=== PATIENT | female | born 1935 | race Caucasian/White ===

== ENCOUNTER 2016-12-05 09:15 | Emergency (ER) | payer MEDICARE, OTHER, MEDICAID ==
--- NOTE | ~2016-12-05 | ER ---
PATIENT'S NAME: YURIDIA ESCAMILLA [facility] AGE: 81 Y [address] ROOM: [place] [address] LOCATION: ED ADMIT DATE: 12/05/2016 ER/Outpatient Report DISCHARGE DATE: 12/05/2016 FAMILY PHYSICIAN: Tyree Beltrán MD ATTENDING PHYSICIAN: Kb Magaña CHIEF COMPLAINT: Dizziness. HISTORY OF PRESENT ILLNESS: The patient was at home and in her usual state of health this morning. She had gone to the restroom and had breakfast with no issues; however, when she sat down, she had acute onset of dizziness which she describes as kind of a spinning-type sensation. She usually sleeps in her recliner and felt like she was doing okay and slept well last night. This just came out of no where and had no symptoms prior to starting. She feels much better upon arrival, but not completely resolved. The patient did have some nausea and vomiting with this, but has otherwise felt okay. No other abdominal complaints. She denies any other acute issues. She states she has never had anything like this before. She has a history of "a small heart," but is unsure what that means exactly. She thinks she does not know her doll wig maker's name, but states they practice at the [facility] [place] [facility]. No medications have been tried for this. She did arrive by ambulance. PAST MEDICAL HISTORY: Documented on the record and reviewed by me. SOCIAL HISTORY: Documented on the record and reviewed by me. MEDICATIONS: Documented on the record and reviewed by me. ALLERGIES: DOCUMENTED ON THE RECORD AND REVIEWED BY ME. REVIEW OF SYSTEMS: All systems were reviewed and negative except as noted in the HPI. PHYSICAL EXAMINATION: VITAL SIGNS: Blood pressure 192/85, pulse 69, respiratory rate 16, temperature 96.2, and SpO2 is 98% on room air. GENERAL: Age-appropriate female, in no obvious pain or distress, resting comfortably on the exam table. PATIENT'S NAME: YURIDIA ESCAMILLA [facility] AGE: 81 Y [address] ROOM: [place] [address] LOCATION: ED ADMIT DATE: 12/05/2016 ER/Outpatient Report DISCHARGE DATE: 12/05/2016 FAMILY PHYSICIAN: Tyree Beltrán MD ATTENDING PHYSICIAN: Kb Magaña NEURO: The patient is awake and alert. GCS is 15. No focal deficits. No asymmetry. No appreciable nystagmus on exam. She has no skew on exam either. She has no problems with rapid alternating movements, no asymmetry otherwise. HEENT: Normocephalic, atraumatic. The eyes are PERRL. Oropharynx is clear. NECK: Supple. Trachea is midline. CHEST/HEART: Regular rate and rhythm. No murmurs. LUNGS: Clear to auscultation bilateral with no rhonchi, wheezes, or rales. ABDOMEN: Soft, nontender, and nondistended. No rebound or guarding. BACK: Nontender to palpation throughout. No CVA tenderness. EXTREMITIES: Warm and well perfused with no edema. SKIN: Warm, dry, and intact with no obvious lesions. LABS, X-RAYS, AND EKGS: Initial EKG was obtained with some significant baseline artifact, but appears to be new right bundle, with otherwise normal intervals and axis. Repeat EKG is stable. No signs of acute ischemia and no ST-segment changes. No comparison available this decade. Labs: CBC is notable for no significant abnormalities other than elevated MCV. Urinalysis: Contaminated, not consistent with infection. CMS notable for glucose of 121, creatinine 1.1, GFR is 48, no other abnormalities. Initial CK-MB 0.9, troponin below threshold. Repeat CK-MB 1.0, troponin remains below threshold. Magnesium of 1.8. INR 0.97. Chest x-ray, grossly unremarkable per my read. IMPRESSION: 1. Dizziness, resolved. 2. Right bundle branch block. EMERGENCY DEPARTMENT COURSE: The patient was seen and evaluated as above. Not consistent with central cause of vertigo. Her symptoms are resolved at this time with no interventions. She does have a new right bundle based on prior EKG from 2004 at this facility. I contacted her doll wig maker Denisha Clay from [facility]. She was not sure if this is new, but is recommending followup in a week. I contacted on-call doll wig maker for that group and they had no documentation of the same and had not seen her since 2012. The patient is currently feeling well. No evidence of ischemia at this time. No dysrhythmia. Not consistent with stroke or other metabolic derangement. She does have some baseline kidney issue, creatinine appropriate, GFR is diminished. This will need to be followed up when she sees her doll wig maker approximately next week. She should also see her primary care physician, Dr. Beltrán, later this week for further evaluation. Return immediately by 911 if worse. All questions were answered, and the patient was discharged in good PATIENT'S NAME: YURIDIA ESCAMILLA [facility] AGE: 81 Y [address] ROOM: [place] [address] LOCATION: [facility] ADMIT DATE: 12/05/2016 ER/Outpatient Report DISCHARGE DATE: 12/05/2016 FAMILY PHYSICIAN: Tyree Beltrán MD ATTENDING PHYSICIAN: Kb Magaña condition. KB MAGAÑA MD JH/modl /[id number] d: 12/05/16 2352 t: 12/12/16 0641, OUTPATIENT REPORT
[~2016-12-05 09:15] MED LIST changes: -DESYREL50 MG PO; -MOBIC7.5 MG PO
[2016-12-05 09:50] LABS: BASOPHIL % 0.3 %; EOSINOPHIL # 0.1 K/uL (0.0-0.5); EOSINOPHIL % 1.8 %; HEMATOCRIT 40.4 % (30.0-46.0); IMMATURE GRANULOCYTE % 0.3 %; LYMPHOCYTE # 1.5 K/uL (0.8-4.0); LYMPHOCYTE % 22.8 %; MCH 31.9 pg (27.0-34.0); MCHC 32.2 gm/dL (32.0-36.5); MONOCYTE # 0.4 K/uL (0.0-1.0); MONOCYTE % 6.6 %; MPV 11.8 fl (9.4-12.4); NEUTROPHIL # (ANC) 4.5 K/uL (1.8-7.8); NEUTROPHIL % 68.2 %; NRBC % 0 /100WBC (0-0.00); PLATELET COUNT 178 K/uL (150-450); RBC 4.08 M/uL (3.00-5.00); RDW-CV 12.1 % (11.9-14.6); WBC 6.7 K/uL (4.0-11.0)
[2016-12-05 09:58] LABS: INR - (THERAPEUTIC) 0.97 (0.92-1.07); PROTIME 10.2 SECONDS (9.8-11.4); PTT 26 SECONDS (25-32)
[2016-12-05 10:14] LABS: ALBUMIN 3.9 gm/dL (3.5-5.0); ALK PHOS 61 IU/L (33-138); ALT 19 IU/L (12-78); ANION GAP 10.7 (10.0-19.0); AST 19 IU/L (10-40); BLOOD UREA NITROGEN 21 mg/dL (6-24); CALCIUM 9.2 mg/dL (8.5-10.5); CHLORIDE 108 mMol/L (96-110); CO2 29 mMol/L (22-32); CPK 63 IU/L (21-215); CREATININE 1.1 mg/dL (0.5-1.1); ESTIMATED GFR (MDRD EQUATION) 48; MAGNESIUM 1.8 mg/dL (1.3-2.6); POTASSIUM 3.7 mMol/L (3.7-5.1); SODIUM 144 mMol/L (135-145); TOTAL BILIRUBIN 0.7 mg/dL (0.0-1.5); TOTAL PROTEIN 7.8 g/dL (6.0-8.4)
[2016-12-05 11:27] LABS: BILIRUBIN URINE NEGATIVE (NEGATIVE); BLOOD URINE NEGATIVE /UL (NEGATIVE); COLOR URINE STRAW (YELLOW); GLUCOSE URINE NEGATIVE (NEGATIVE); KETONE URINE NEGATIVE (NEGATIVE); LEUKOCYTES URINE 100 /UL (NEGATIVE); NITRITE URINE NEGATIVE (NEGATIVE); PROTEIN URINE NEGATIVE (NEGATIVE); TURBIDITY URINE CLEAR (CLEAR); UROBILINOGEN URINE NORMAL (NORMAL)
[2016-12-05 11:37] LABS: RBC URINE RARE #/HPF (NEGATIVE)
[2016-12-05 11:38] LABS: AMORPHOUS URINE 2+ (NEGATIVE); BACTERIA URINE NEGATIVE (NEGATIVE); MUCUS URINE 1+ (NEGATIVE)
[2016-12-05 12:14] LABS: CPK 65 IU/L (21-215)
== END 2016-12-05 13:32 | disposition disaster alternative care site (69) ==
LOC: GMED 09:15
PROVIDERS: Emergency Medicine
DX: I45.10 Unspecified right bundle-branch block (principal)

== ENCOUNTER → 2016-12-05 | Outpatient (CLI) | payer MEDICARE, OTHER, MEDICAID ==
[~2016-12-05] MED LIST: ASPIRIN325 MG PO; BACTRIM DS1 TAB PO; CALCIUM 500 +1 EAC3 PO; COZAAR100 MG PO; COZAAR25 MG PO; DESYREL50 MG PO; FLOMAX0.4 MG PO; LIPITOR40 MG PO; MAG-OX-400(241400 MG PO; MOBIC7.5 MG PO; NORCO 5-325 MG1 TAB PO; PRILOSEC20 MG PO; THERAGRAN-M1 TAB PO; TOPROL XL 5050 MG PO; TOPROL XL100 MG PO; TYLENOL EXTRA500 MG PO; VALIUM5 MG PO
== END | disposition disaster alternative care site (69) ==
LOC: GAMB 08:50
DX: R11.2 Nausea with vomiting, unspecified (principal); R53.1 Weakness; I10 Essential (primary) hypertension; E78.5 Hyperlipidemia, unspecified; Z79.899 Other long term (current) drug therapy; Z79.82 Long term (current) use of aspirin; Z88.8 Allergy status to other drugs, medicaments and biological substances
CPT/HCPCS: A0425; A0427

== ENCOUNTER 2017-01-04 12:01 | Observation (INO) | payer MEDICARE, OTHER, MEDICAID ==
[~2017-01-04] VITALS: Ht 154.9 cm; Wt 64.8 kg
--- NOTE | ~2017-01-04 | CON ---
[facility] 81 Y [address] ROOM: [place] [address] LOCATION: [facility] ADMIT DATE: 01/04/2017 Consultation DISCHARGE DATE: FAMILY PHYSICIAN: Tyree Beltrán MD ATTENDING PHYSICIAN: CRISTI TAVAREZ DATE OF CONSULTATION: 01/04/2017 CHIEF COMPLAINT: Dizziness, newly discovered bilateral small chronic subdural hematomas. HISTORY OF PRESENT ILLNESS: The patient is an 81-year-old female patient, who presented to the emergency with a main complain of dizziness. She was investigated by the emergency physician and a noncontrast CT head showed evidence of bilateral small chronic subdural hematomas. I was consulted to assess the patient with regard to that. I met the patient in the presence of her daughter in the emergency. The patient reported 1-day history of persistent dizziness. She also reported mild headache. She denied recent falls. She denied new weakness on her hands or her feet. 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 She denied visual disturbances. She denied nausea or vomiting. PAST MEDICAL HISTORY: 1. Hypertension. 2. Hyperlipidemia. 3. Osteoporosis. 4. Hypomagnesemia. 5. Chronic kidney disease. 6. Hip replacement surgery. 7. Hysterectomy. REVIEW OF SYSTEMS: All points review of systems were asked about. Pertinent positives were mentioned. MEDICATIONS: Listed in the patient's chart. The patient takes baby aspirin once daily. ALLERGIES: LISTED IN THE PATIENT'S CHART. SOCIAL HISTORY: The patient lives in [facility]. She denies smoking or alcohol drinking. PAT[facility] AGE: 81 Y [address] ROOM: [place] [address] LOCATION: [facility] ADMIT DATE: 01/04/2017 Consultation DISCHARGE DATE: FAMILY PHYSICIAN: Tyree Beltrán MD ATTENDING PHYSICIAN: CRISTI TAVAREZ FAMILY HISTORY: Noncontributory to the patient's presentation. PHYSICAL EXAMINATION: GENERAL: The patient was cooperative and pleasant. She was not in acute distress. VITAL SIGNS: The patient's blood pressure was less than 150. She was afebrile. HEAD: It was atraumatic. Pupils were 3 mm and reactive. Sclerae examination was normal bilaterally. NECK: No tenderness to palpation. Neck range of motion was painless. No palpable masses. LYMPHATIC: No cervical lymphadenopathy. GAIT: Not done. BACK: Not done. MUSCULOSKELETAL: Showed chronic arthritic changes involving the right wrist and hand. She had limited mobility of the right shoulder. RESPIRATORY: She was not in any respiratory distress. CARDIOVASCULAR: She had palpable pulses on the upper and lower extremities. SKIN: No abnormal rash was seen. No lacerations were seen. NEUROLOGIC: She was alert and oriented to time, place, and person. Pupils were 3 mm and reactive. Face was symmetric. Eye movements were full. Motor examination on the upper extremities was normal, although it was limited on the right upper extremity due to shoulder osteoarthritis. Sensory examination on the upper extremities was normal. Motor and sensory examination on the lower extremities was normal. INVESTIGATIONS: Noncontrast CT head done on 01/04/2017, which I personally reviewed and compared to another noncontrast CT head done on 12/05/2016. It showed global age-related brain atrophy. The most recent scan showed evidence of small bilateral chronic subdural fluid centered along the posterior frontal lobe and the parietal lobes bilaterally. No evidence of skull fractures. IMPRESSION AND PLAN: An 81-year-old female patient, who is on daily aspirin, presented to the emergency with 1-day history of persistent dizziness. She was investigated with a noncontrast CT head and that showed evidence of small bilateral chronic subdural hematomas with no significant mass effect. The patient will be admitted to the hospitalist/family practice for further investigations of the dizziness. RECOMMENDATIONS AND DISCUSSION: 1. The patient will require further investigations of the acute onset PATIENT'S NAME: YURIDIA ESCAMILLA [facility] AGE: 81 Y [address] ROOM: [place] [address] LOCATION: [facility] ADMIT DATE: 01/04/2017 Consultation DISCHARGE DATE: FAMILY PHYSICIAN: Tyree Beltrán MD ATTENDING PHYSICIAN: CRISTI TAVAREZ dizziness. Given the size of the hematomas, I do not think it is the main culprit for the acute onset dizziness. Causes of dizziness include cardiac arrhythmias, side effect from medications, and uncontrolled hypertension. 2. Hold aspirin until further notice from Neurosurgery. 3. I will see the patient in the hospital. Likely, the subdural hematomas will be followed clinically and with imaging. I discussed the imaging with the patient and her family and informed them about the findings. I clearly indicated that the subdural hematomas are small and they do not require any surgical intervention at this point. However, I pointed out the possibility of hematoma expansion down the line. Given that, I recommended holding the aspirin for now and follow up in the hospital and subsequently in my office. The patient and her family asked appropriate questions and those were answered to their satisfaction. It was pleasure taking care of this patient and thanks for having us involved. MD MANDI LING/modl /[id number] CC: MD Tyree Godfrey MD d: 01/05/17 1444 t: 01/06/17 1452, CONSULTATION REPORT
--- NOTE | ~2017-01-04 | HP ---
PATIENT'S NAME: YURIDIA ESCAMILLA [facility] AGE: 81 Y [address] ROOM: [id number] [place] [address] LOCATION: [facility] ADMIT DATE: 01/04/2017 History & Physical DISCHARGE DATE: FAMILY PHYSICIAN: Tyree Beltrán MD ATTENDING PHYSICIAN: CRISTI TAVAREZ DATE OF SERVICE: CHIEF COMPLAINT: "I am dizzy." HISTORY OF PRESENT ILLNESS: Ms. Escamilla is an 81-year-old female with past medical history significant for hypertension, hyperlipidemia, osteoporosis, chronic kidney disease, low blood magnesium, arthritis among others, who presents as admission to [facility] Neuro Trauma Unit from the [facility] Emergency Department and previously at the [facility] for vertigo. The patient states that she was in her usual state of health when she began experiencing vertigo on the day before admission. She states it is positional. It would worse when she arise particularly from a seated position. She was seen previously at the [facility] by Dr. Beltrán for dizziness about a month ago. She had an EKG, chest x-ray, and lab work, all were normal at that time. She was seen by Cardiology, who did a carotid Doppler as well as echocardiogram, which was unremarkable for any acute cause. She did then present to the [facility] on 01/03/2017 and was found to have urinalysis with some leukocytes and some bacteria, was treated for urinary tract infection. She had orthostatics done at that time, that really were unremarkable. She was told to follow up back at the [facility] the next day. On the day of admission, the patient was feeling worse. She was complaining of worsening dizziness in terms of a room spinning sensation. It was positional. She had really no other acute complaints at that time. She was evaluated by midlevel provider and sent to the emergency department for further evaluation and management because she did not look well. In the emergency department, she ultimately had a blood pressure of 185/95, pulse of 80, respirations 18, oxygen level 97%, and temperature 98.6. She also had an emesis there. She also had a number of labs done including a CMS, which was only remarkable for a blood glucose of 108 and a GFR of 53. She had a normal procalcitonin. Lactate was also normal. Complete blood count was within normal limits. She had abdomen and chest x-ray, which were normal. Head CT did show that the patient had some small subacute subdural hematomas overlying the high posterior parietal lobes bilaterally. They were new since previous study. She also had periventricular small vessel ischemic disease. Because of her ongoing dizziness and the fact that the patient is currently in independent living, she was admitted to the neurotrauma unit for further evaluation and management. PATIENT'S NAME: YURIDIA ESCAMILLA [facility] AGE: 81 Y [address] ROOM: [id number] [place], [place] [address] LOCATION: [facility] ADMIT DATE: 01/04/2017 History & Physical DISCHARGE DATE: FAMILY PHYSICIAN: Tyree Beltrán MD ATTENDING PHYSICIAN: CRISTI TAVAREZ Upon reaching the unit, I did evaluate the patient. She had really no acute complaints except for dizziness, that was positional. She had no headaches, vision changes, neck pain, or sore throat. Adamantly denies any sort of trauma or head injury. No abdominal pain, constipation, blood in her stools, loose stools, or other gastrointestinal issues. Occasional joint pains, really no other complaints. Mood was good. No new skin rashes. No other complaints in general. REVIEW OF SYSTEMS: Negative except for those noted in the HPI. MEDICATION LIST: Please see nursing notes. PAST MEDICAL HISTORY: 1. Hypertension. 2. Hyperlipidemia. 3. Osteoporosis. 4. Low magnesium. 5. Chronic kidney disease. 6. Arthritis. PAST SURGICAL HISTORY: 1. Hemorrhoid surgery in 1970. 2. Hip replacement in 1984. 3. Hysterectomy in 1983. 4. Oral surgery for dentures by Dr. Rey. FAMILY HISTORY: The patient's parents both . Father at 89 from really unknown causes, but likely secondary to heart issues. Mother at 90 from old age. She reports really no other family history issues, but also tells me that "we did not talk about that kind of thing where I am from." SOCIAL HISTORY: The patient is and lives in [facility]. Previously lives with her , who . She has 2 sons and a daughter. She does not smoke or drink alcohol. She is retired. PHYSICAL EXAMINATION: GENERAL: A very pleasant, interactive, elderly female, in no acute distress. HEAD: Normocephalic and atraumatic. EYES: Conjunctivae clear. Sclerae white. ENT: Mucous membranes are moist. PATIENT'S NAME: YURIDIA ESCAMILLA [facility] AGE: 81 Y [address] ROOM: [address] [address] LOCATION: [facility] ADMIT DATE: 01/04/2017 History & Physical DISCHARGE DATE: FAMILY PHYSICIAN: Tyree Beltrán MD ATTENDING PHYSICIAN: CRISTI TAVAREZ HEART: Regular rate and rhythm without murmurs, rubs, clicks, or gallops. LUNGS: Clear to auscultation in all schmidt bilaterally. ABDOMEN: Soft, nontender, and nondistended. Bowel sounds are positive. EXTREMITIES: Warm and well perfused. No clubbing, cyanosis, or edema. NEUROLOGIC: Cranial nerves II through XII are grossly intact. No focal deficits. PSYCHIATRIC: Mood reported as good. LABORATORY AND X-RAY: As per HPI. IMPRESSION AND PLAN: This is an 81-year-old female with subdural hematomas and vertigo. 1. Subacute subdural hematoma: The patient appears to be a pretty good historian and adamantly denies any sort of traumatic brain injury. Could be a ruptured aneurysm versus other significant atrophy of the cerebrum, which could have led to the subdural hematoma. She is on an aspirin, but no other blood thinners. It does look that she takes meloxicam occasionally, which could have contributed as well. She was evaluated by Neurosurgery, who did not recommend any intervention at this point rather observation. I would like to go ahead with an MRI of the brain to further delineate any other possible addressable cause as well as an MRA since we do not have a definite trauma cause. May consider having the patient see Neurology as well. 2. Chronic kidney disease, stage 3, GFR of 53: We will renally dose all medications to avoid nephrotoxic agents. 3. Vertigo: I think this is actually benign positional vertigo. We will ask Physical Therapy to see the patient for further evaluation and management. May use meclizine if needed. 4. Hypertension: We will continue the patient on her home medication regimen. 5. Hyperlipidemia: We will continue the patient on her home medication regimen. 6. Low magnesium: Continue with home dose. 7. Insomnia: Continue with trazodone. 8. Fluids: None. 9. Electrolytes: Stable. 10. Nutrition: Low-salt diet. 11. Code status: DNR/DNI per my discussion with the patient and her daughter. DISPOSITION: The patient is currently in observation at this time. Unfortunately, primary care physician, Dr. Tyree Beltrán, is out of town and will not be back for the next 2 days. I have assumed care and will take care of the patient throughout PATIENT'S NAME: YURIDIA ESCAMILLA [facility] AGE: 81 Y [address] ROOM: [place] [address] LOCATION: [facility] ADMIT DATE: 01/04/2017 History & Physical DISCHARGE DATE: FAMILY PHYSICIAN: Tyree Beltrán MD ATTENDING PHYSICIAN: CRISTI TAVAREZ the course of her hospitalization. CRISTI TAVAREZ MD BAB/modl /[id number] D: T: 804 HISTORY & PHYSICAL
--- NOTE | ~2017-01-04 | DS ---
PATIENT'S NAME: YURIDIA ESCAMILLA [facility] AGE: 81 Y [address] ROOM: [place] [address] LOCATION: [facility] ADMIT DATE: 01/04/2017 Discharge Summary DISCHARGE DATE: 01/06/2017 FAMILY PHYSICIAN: Tyree Beltrán MD ATTENDING PHYSICIAN: Vincenzo Simpson FINAL/PRIMARY/DISCHARGE DIAGNOSIS: Dizziness. ADDITIONAL DIAGNOSES: 1. Subacute subdural hematomas. 2. Essential hypertension. 3. Mixed dyslipidemia. 4. Low magnesium. 5. A previous urinary tract infection. 6. Insomnia. 7. Chronic kidney disease, stage 3. CONSULTATIONS: Treva Agudelo MD, on 01/04/2017. DIAGNOSTIC STUDIES: 1. CT scan of head on 01/04/2017 showed subdural hematomas bilaterally. 2. Brain MRI on 01/05/2017 showed small subacute bilateral subdural hematomas without significant mass effect, as well as scattered periventricular small-vessel ischemic changes. 3. MRA was unremarkable. PROCEDURES: None. DISCHARGE PHYSICAL EXAMINATION: GENERAL: A pleasant, interactive elderly female, in no acute distress. HEAD: Normocephalic and atraumatic. EYES: Conjunctivae were clear. Sclerae were white. ENT: Mucous membranes are moist. NECK: Supple. Trachea is midline. HEART: Bradycardic. No murmurs, rubs, clicks, or gallops. LUNGS: Clear to auscultation bilaterally. ABDOMEN: Soft, nontender, and nondistended. Bowel sounds are positive. EXTREMITIES: Warm and well perfused. No clubbing, cyanosis, or edema. SKIN: No acute rashes. NEUROLOGIC: Cranial nerves II through XII are grossly intact. No focal deficits were noted on exam. BRIEF HOSPITAL COURSE: Ms. Escamilla is an 81-year-old female with a past medical history as noted above, who presented as admission to the [facility] Neuro[facility]uma Unit from the [facility] Emergency Department for PATIENT'S NAME: YURIDIA ESCAMILLA [facility] AGE: 81 Y [address] ROOM: [place] [address] LOCATION: [facility] ADMIT DATE: 01/04/2017 Discharge Summary DISCHARGE DATE: 01/06/2017 FAMILY PHYSICIAN: Tyree Beltrán MD ATTENDING PHYSICIAN: Vincenzo Simpson her dizziness. The patient had a CT scan of her head that showed bilateral subdural hematomas. The patient adamantly denied any sort of trauma. She did have significant dizziness, which she described as an imbalance. She was fine at rest, but would have significant problems with gait and dizziness with movement. She denied vertigo symptoms at that time. The patient underwent the above imaging. She also was seen by Physical and Occupational Therapy. The patient did not feel safe to go home to independent living, and I agreed. The patient will be transferred to [facility] for rehabilitation. I fully expect that the patient will get some good gait training, as well as work on her balance and will likely be discharged back to either assisted living or independent living depending on how well she does. We will have her follow up with primary care provider within a week to assess her progress. The patient did do much better with a four-wheeled walker. At the end of the hospitalization, the patient was tolerating a diet, and ambulating relatively well with a four-wheeled walker, but still having some balance issues. DISCHARGE RECOMMENDATIONS: Follow up with Dr. Beltrán, primary care provider within seven to ten days. Additional recommendations if the patient is not doing well or having issues, please call the [facility] for further recommendations. DISCHARGE PROGNOSIS: Good. CONDITION: Stable. MD NIRU KOWALSKI/modl /[id number] d: 01/07/17 0140 t: 01/25/17 0814, DISCHARGE SUMMARY
--- NOTE | ~2017-01-04 | ER ---
PATIENT'S NAME: YURIDIA ESCAMILLA [facility] AGE: 81 Y [address] ROOM: [place] [address] LOCATION: [facility] ADMIT DATE: 01/04/2017 ER/Outpatient Report DISCHARGE DATE: FAMILY PHYSICIAN: Tyree Beltrán MD ATTENDING PHYSICIAN: CRISTI SIMPSON CHIEF COMPLAINT: Dizziness with vomiting. HISTORY OF PRESENT ILLNESS: The patient states that she had been feeling relatively well recently until the last few days. She had been dizzy a little bit and generally was not feeling well, so she went to clinic yesterday and was diagnosed with UTI and started on Bactrim. She was feeling really good yesterday and then woke up this morning feeling very poorly. She was very unstable and felt like she could not even get out of bed. She denies any other new changes. She denies any recent falls or other issues. According to her medicine list, she does not take any anticoagulation other than aspirin. Her family notes that she is at her normal mental baseline, which is slightly confused and a little bit forgetful, but otherwise okay. PAST MEDICAL HISTORY: Documented on the record and have been reviewed by me. SOCIAL HISTORY: Documented on the record and have been reviewed by me. MEDICATIONS: Documented on the record and have been reviewed by me. ALLERGIES: DOCUMENTED ON THE RECORD AND HAVE BEEN REVIEWED BY ME. REVIEW OF SYSTEMS: All systems are reviewed and negative except as noted in the HPI. PHYSICAL EXAMINATION: VITAL SIGNS: Blood pressure 185/95, pulse is 80, respiratory rate is 18, temperature is 98.6, SpO2 is 97% on room air. Pain is rated as 0/10. GENERAL: An age appropriate female, in no obvious pain or distress, resting comfortably on the exam table. NEUROLOGIC: The patient is awake, she is alert, she is oriented to person, place, and situation, but intermittently forgetful to date and she has to work, but does get the date correct. She follows commands in all extremities and has no obvious asymmetry on her exam. With ambulation, she is symptomatic PATIENT'S NAME: YURIDIA ESCAMILLA [facility] AGE: 81 Y [address] ROOM: [place] [address] LOCATION: [facility] ADMIT DATE: 01/04/2017 ER/Outpatient Report DISCHARGE DATE: FAMILY PHYSICIAN: Tyree Beltrán MD ATTENDING PHYSICIAN: CRISTI SIMPSON and very unsteady on her feet. There is no nystagmus appreciated on the exam and the patient is asymptomatic in the bed with movements of the head. HEENT: Normocephalic, atraumatic. Eyes are PERRL. Oropharynx is clear. NECK: Supple. Trachea is midline. CHEST: Heart is regular rate and rhythm with no murmurs. LUNGS: Clear to auscultation bilateral with no rhonchi, wheezes, or rales. ABDOMEN: Soft, nontender, and nondistended. No rebound or guarding. BACK: Nontender to palpation throughout. EXTREMITIES: Warm and well perfused with slight bilateral lower extremity edema in a compression hose. No obvious deformities. SKIN: Warm, dry, and intact. LABORATORY DATA AND X-RAYS: Head CT with probable bilateral subdural hematoma. EKG with some artifact, but no obvious abnormalities. No significant changes compared to prior EKG from 12/05/2016. Procalcitonin is below threshold. Urinalysis is without evidence of infection. Free T4 and TSH are within range. CRP is below detectable threshold. CMS is without abnormality other than a GFR of 53. Amylase and lipase are 49 and 109 respectively with troponin below threshold. CBC without significant abnormality and INR is 1.0. Lactate is 1.2. IMPRESSION: 1. Acute bilateral nontraumatic subdural hematoma. 2. Persistent dizziness and unsteadiness on the feet. 3. Slight forgetfulness. EMERGENCY DEPARTMENT COURSE: The patient was seen and evaluated as above. There is no active evidence of UTI at this time. She will need to be admitted for safety concerns that she is currently unstable on her feet. Her presentation is not consistent with a posterior stroke. Her symptoms are only when she is standing. I discussed the case with Dr. Simpson, primary care physician, who will admit her to the hospital for further evaluation and treatment. Dr. Agudelo, neurosurgeon, did review the case with me and reviewed the images. He will see her in the hospital. The patient was admitted without further issue. MD AMADOR BERRIOS/wendy PATIENT'S NAME: YURIDIA ESCAMILLA [facility] AGE: 81 Y [address] ROOM: [place] [address] LOCATION: [facility] ADMIT DATE: 01/04/2017 ER/Outpatient Report DISCHARGE DATE: FAMILY PHYSICIAN: Tyree Beltrán MD ATTENDING PHYSICIAN: CRISTI SIMPSON /[id number] d: [birth year]/17922 t: 01/17/17 173, OUTPATIENT REPORT
[2017-01-04 13:38] LABS: BASOPHIL % 0.4 %; EOSINOPHIL % 0.3 %; HEMATOCRIT 39.1 % (30.0-46.0); IMMATURE GRANULOCYTE % 0.3 %; LYMPHOCYTE # 0.9 K/uL (0.8-4.0); LYMPHOCYTE % 11.3 %; MCH 32.3 pg (27.0-34.0); MCHC 33.2 gm/dL (32.0-36.5); MONOCYTE # 0.3 K/uL (0.0-1.0); MONOCYTE % 4.2 %; MPV 11.8 fl (9.4-12.4); NEUTROPHIL # (ANC) 6.7 K/uL (1.8-7.8); NEUTROPHIL % 83.5 %; NRBC % 0 /100WBC (0-0.00); PLATELET COUNT 196 K/uL (150-450); RBC 4.03 M/uL (3.00-5.00)
[2017-01-04 13:41] LABS: INR - (THERAPEUTIC) 1.01 (0.92-1.07); PROTIME 10.6 SECONDS (9.8-11.4); PTT 27 SECONDS (25-32)
[2017-01-04 13:54] LABS: ALBUMIN 3.8 gm/dL (3.5-5.0); ALK PHOS 55 IU/L (33-138); ALT 15 IU/L (12-78); ANION GAP 13.1 (10.0-19.0); AST 17 IU/L (10-40); BLOOD UREA NITROGEN 14 mg/dL (6-24); CALCIUM 9.3 mg/dL (8.5-10.5); CHLORIDE 108 mMol/L (96-110); CO2 26 mMol/L (22-32); ESTIMATED GFR (MDRD EQUATION) 53; POTASSIUM 4.1 mMol/L (3.7-5.1); SODIUM 143 mMol/L (135-145); TOTAL BILIRUBIN 0.6 mg/dL (0.0-1.5); TOTAL PROTEIN 7.2 g/dL (6.0-8.4)
[2017-01-04 13:58] LABS: BILIRUBIN URINE NEGATIVE (NEGATIVE); BLOOD URINE NEGATIVE /UL (NEGATIVE); COLOR URINE YELLOW (YELLOW); GLUCOSE URINE NEGATIVE (NEGATIVE); KETONE URINE 15 mg/dL (NEGATIVE); LEUKOCYTES URINE NEGATIVE /UL (NEGATIVE); NITRITE URINE NEGATIVE (NEGATIVE); PROTEIN URINE NEGATIVE (NEGATIVE); SPEC GRAVITY URINE 1.015 (1.003-1.035); TURBIDITY URINE CLEAR (CLEAR); UROBILINOGEN URINE NORMAL (NORMAL)
[2017-01-04] MEDS ORDERED: MOBIC7.5 MG PO (19:08)
[2017-01-04] MEDS ORDERED: DESYREL50 MG PO (19:09)
--- NOTE | 2017-01-04 19:24 | NUR ---
81 Y/O FEMALE ADMITTED FOR SUBDURAL HEMATOMA, PT HAS C/O DIZZINESS SINCE YESTERDAY, TROUBLES REMEMBERING THINGS TODAY, ALSO C/O SEVERE HEADACHE & NAUSEA. PT HAS NOT EATEN ANYTHING TODAY & HAS ONLY HAD A FEW SIPS OF FLUIDS ALLERGIES - DARVOCET, CECLOR, KEFLEX, CIPRO, TWQUIN, AVALOX, VIOXX. MEDICAL & SURGICAL HISTORY - BILAT CATARACT W. IOLI, HEMORRHOIDCTOMY, HEART CATH & STENT, ABD HYSTER & APPY, LT ADINA, CYSTO WITH STENT, RT CTR, HX MIGRAINES, HTN, HIGH CHOL, OCC EDEMA BILAT ANKLES, SLEEP APNEA, SNORES, ARTHRITIS, HEARTBURN, HEMORRHHOIDS, CKD STAGE III, KIDNEY STONES, URINARY URG, FREQ, NOCTURIA, VERY DRYK SKIN. PT IS ALERT, VERY KIND, AND ORIENTED X3 HOWEVER IS A BIT FORGETFUL ABOUT SOME THINGS. PT IS A NON SMOKER & NON DRINKER, SHE LIVES IN [facility] HERE IN [place]. REPORT GIVEN TO PT PRIMARY CARE NURSE THOR RN ADM EDUCATION DONE
--- NOTE | 2017-01-05 03:11 | NUR ---
Significant Event: A&Ox3. Has billateral peripheral vision loss but pt and daughter state that she has had that for a while. Pt is weak in R) arm but pt and daughter also state she has been going to phisical therapy for that. Up 1 assist GB. Pt gets very dizzy with movement. On tele SR. VSS. RA lungs clear. Last BM 01/02. Has very dry scaley skin to her lower legs and feet. Nails very long. IV to the R) hand SL. Follow up:
[2017-01-05 04:53] LABS: BASOPHIL % 0.3 %; EOSINOPHIL # 0.1 K/uL (0.0-0.5); EOSINOPHIL % 1.2 %; HEMATOCRIT 35.6 % (30.0-46.0); HEMOGLOBIN 11.6 g/dL (10.0-15.0); IMMATURE GRANULOCYTE % 0.3 %; LYMPHOCYTE # 1.4 K/uL (0.8-4.0); LYMPHOCYTE % 20.5 %; MCH 32.1 pg (27.0-34.0); MCHC 32.6 gm/dL (32.0-36.5); MCV 98.6 fl (83.0-98.0); MONOCYTE # 0.7 K/uL (0.0-1.0); MONOCYTE % 9.9 %; NEUTROPHIL # (ANC) 4.5 K/uL (1.8-7.8); NEUTROPHIL % 67.8 %; NRBC % 0 /100WBC (0-0.00); PLATELET COUNT 176 K/uL (150-450); RBC 3.61 M/uL (3.00-5.00); WBC 6.7 K/uL (4.0-11.0)
[2017-01-05 05:11] LABS: ANION GAP 12.9 (10.0-19.0); CALCIUM 8.6 mg/dL (8.5-10.5); POTASSIUM 3.9 mMol/L (3.7-5.1)
--- NOTE | 2017-01-05 12:13 | NUR ---
Introduced self and role of care management to patient and her daughter. She lives at [facility]. She states that up until Monday she was able to do all her own ADL's. She states that since Monday she has been very dizzy and her balance is off. We discussed discharge plans. She states "I am going to [facility], I have been there before and it's the only place I will go." I did explain that at this time she is Observation status and that does not count towards nights for a skilled stay. She states " I know that". I did call and send referral to Renetta at [facility]. I also called and spoke to Mariam at [facility] regarding having patient go to [facility] under her Medicaid. She states that [facility] can assist with the SCO. I placed a call to Renetta at [facility] had to leave a voicemail message. Will wait to hear back for Renetta. Will continue to follow.
--- NOTE | 2017-01-05 13:24 | NUR ---
Significant Event: VSS. Patient alert and oriented x 3, slightly forgetful. Follows commands. Rt arm slightly weaker. Denies numbness/tingling. Pupils 2mm, sluggish. Denies pain so far this shift. Lungs clear and dim on room air. Iv in rt hand, saline locked. Up with 1 assist and walker. Had MRI this am of head. Alarms on for safety. Follow up: Monitor. Neuro status.
[2017-01-05 14:46] LABS: BASOPHIL % 0.3 %; EOSINOPHIL # 0.1 K/uL (0.0-0.5); HEMATOCRIT 39.6 % (30.0-46.0); HEMOGLOBIN 13.1 g/dL (10.0-15.0); IMMATURE GRANULOCYTE % 0.3 %; LYMPHOCYTE # 1.5 K/uL (0.8-4.0); LYMPHOCYTE % 20.3 %; MCH 32.1 pg (27.0-34.0); MCHC 33.1 gm/dL (32.0-36.5); MCV 97.1 fl (83.0-98.0); MONOCYTE # 0.6 K/uL (0.0-1.0); MONOCYTE % 8.6 %; MPV 11.7 fl (9.4-12.4); NEUTROPHIL # (ANC) 5.1 K/uL (1.8-7.8); NEUTROPHIL % 69.5 %; NRBC % 0 /100WBC (0-0.00); PLATELET COUNT 208 K/uL (150-450); RBC 4.08 M/uL (3.00-5.00); RDW-CV 12.1 % (11.9-14.6); WBC 7.3 K/uL (4.0-11.0)
[2017-01-05 15:40] LABS: ALBUMIN 3.7 gm/dL (3.5-5.0); ANION GAP 13.9 (10.0-19.0); CALCIUM 9.1 mg/dL (8.5-10.5); CREATININE 1.2 mg/dL (0.5-1.1); POTASSIUM 3.9 mMol/L (3.7-5.1); TOTAL BILIRUBIN 0.5 mg/dL (0.0-1.5)
--- NOTE | 2017-01-06 04:16 | NUR ---
Significant Event: A/Ox3. Ambulates 1A with walker and gait belt. Right arm weaker than left arm but still has moderate strength. Denies numbness/tingling and able to follow commands. Room air and vital signs stable. IV to right hand flushes without difficulty. Denies pain or discomfort and ambulated in alvarado x1. Calm and cooperative with cares. Follow up: [facility] today at 11:30
--- NOTE | 2017-01-06 10:25 | NUR ---
Called Dolly at [facility], SCO is completed and patient can go. Diane Marie will be out to visit with patient next week at [facility]. 1030 Spoke to patients nurse and charge nurse, good to discharge and orders are done. Called Renetta back, will be here at 1130 to picker feeder patient. Faxed orders. Nurse to nurse given to charge. Updated patient on plan.
--- NOTE | 2017-01-06 10:28 | NUR ---
Pt has stable vital signs. Arouses easily from sleep, denies pain. Continues on Bactrim DS for a urinary tract infection. Pt tx to chair, denies dizziness/nausea or visual disturbances with rest or activity. PEERLA. Pt can be sometimes forgetful, and has word finding difficulties, eventually is able to find the word she wanted to say. NIHSS 1. Pt ate breakfast without difficulties. Transfers with SBA 1, voids per BR, showers with supervision. Last BM 01/03/17. Pt started on Colace today. Pt states she often doesn't have BM for several days to a week at time. Passing flatus, denies discomfort. Bowel sounds present.
== END 2017-01-06 11:42 ==
LOC: GMED 12:01 → GNTU 17:23
PROVIDERS: Emergency Medicine; ADMIT Family Medicine
DX: R42 Dizziness and giddiness (principal); I62.02 Nontraumatic subacute subdural hemorrhage; E78.5 Hyperlipidemia, unspecified; M81.0 Age-related osteoporosis without current pathological fracture; M19.90 Unspecified osteoarthritis, unspecified site; I12.9 Hypertensive chronic kidney disease with stage 1 through stage 4 chronic kidney disease, or unspecified chronic kidney disease; N18.3 Chronic kidney disease, stage 3 (moderate); G47.00 Insomnia, unspecified; E83.42 Hypomagnesemia; Z96.642 Presence of left artificial hip joint; Z88.1 Allergy status to other antibiotic agents; Z90.710 Acquired absence of both cervix and uterus; Z79.82 Long term (current) use of aspirin; Z79.899 Other long term (current) drug therapy; Z98.890 Other specified postprocedural states
CPT/HCPCS: G0378; G8978; G8979; G8980; G8987; G8988; G8989; G8998

== ENCOUNTER → 2017-01-20 | Outpatient (CLI) | payer MEDICARE, OTHER, MEDICAID ==
[~2017-01-20] MED LIST changes: +DESYREL50 MG PO; +MOBIC7.5 MG PO
== END | disposition disaster alternative care site (69) ==
LOC: GRAD 08:48
DX: I62.03 Nontraumatic chronic subdural hemorrhage (principal)

== ENCOUNTER → 2017-03-07 | Outpatient (CLI) | payer MEDICARE, OTHER, MEDICAID | END | disposition disaster alternative care site (69) | LOC: GRAD 10:34 | DX: I62.03 Nontraumatic chronic subdural hemorrhage (principal); G31.9 Degenerative disease of nervous system, unspecified; I70.90 Unspecified atherosclerosis ==